=== PATIENT | male | born 1965 | race Caucasian/White ===

== ENCOUNTER 2016-11-18 16:22 | Emergency (ER) | payer BC, OTHER ==
[~2016-11-18] VITALS: Ht 177.8 cm; Wt 107.0 kg
--- NOTE | 2016-11-18 16:30 | NUR ---
AAOX3, CAME TO ER C/O L TESICULAR PAIN AND SWELLING X 1 WEEK . RESP EVEN AND UNLABORED WITH NAD NOTED. SKIN IS WARM AND DRY. AWAITING MD FOR EVAL.
--- NOTE | 2016-11-18 16:34 | NUR ---
ARMANDO GOMEZ AT BS FOR EVAL.
[2016-11-18 16:59] LABS: APPEARANCE,URINE Clear (CLEAR); BILIRUBIN,URINE Negative (NEGATIVE); BLOOD, URINE Trace-intact Ery/uL (NEGATIVE); COLOR,URINE Yellow (YELLOW); KETONES,URINE Negative (NEGATIVE); LEUKOCYTE ESTERASE ,URINE Negative (NEGATIVE); NITRITE, URINE Negative (NEGATIVE); PH,URINE 6.5 (5.0-8.0); PROTEIN,URINE Negative (NEGATIVE); UGLUCOSE Negative (NEGATIVE); UROBILINOGEN,URINE 0.2 EU/dL (0.2)
[2016-11-18 17:16] LABS: ADD URINE CULTURE NO; BACTERIA,URINE Rare /HPF (None Seen); RBC,URINE 0-2 /HPF (0-2); SQUAMOUS EPITHELIAL CELL,UR Few /HPF (None Seen); WBC,URINE 0-2 /HPF (0-3)
--- NOTE | 2016-11-18 17:30 | NUR ---
Patient is resting comfortably in bed with eyes closed. Easily aroused. VSS
--- NOTE | 2016-11-18 19:02 | NUR ---
REPORT GIVEN TO JACINTO CARL FOR [facility]ERINE.
[2016-11-18 19:05] VITALS: BP 115/82
== END 2016-11-18 19:06 | disposition home or self-care (01) ==
LOC: ER 16:26
DX: N45.1 Epididymitis (principal)
CPT/HCPCS: 76870-TC; 81000-TC; A4606; Z7610